=== PATIENT | female | born 1995 | race Caucasian/White ===

== ENCOUNTER 2017-03-21 21:13 | Inpatient (IN) | payer BC, OTHER ==
[~2017-03-21] VITALS: Ht 160 cm; Wt 100.7 kg
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
--- NOTE | ~2017-03-21 | PN ---
Unit #: [id number] #: [id number] Patient: REFUGIO AYALA [id number] [facility] [address] [place] [address] [id number] I MR#: [id number] NAME: REFUGIO AYALA ROOM: P257 Age: 22 Sex: F Admission Date: 03/21/2017 : 1995 Attending Physician: Mickey Troy M.D. Admitting Physician: Mickey Troy M.D. Primary Care Physician: Mary VÁZQUEZ PROGRESS NOTES DATE March 25, 2017 DISCUSSION Ms. Ayala is a 22-year-old white female, who was seen today and chart was reviewed and the case was discussed with the staff. She reports doing fairly well and appears to be showing improvement in her depressive symptoms. Meanwhile, she has been cooperative with the treatment recommendations and she has been taking the medications and tolerating them fairly well with no reported side effects. MENTAL STATUS EXAMINATION Young white female, who was casually dressed with fair personal hygiene and appears to be in no acute distress or discomfort. The patient was awake and alert with intact orientation. Her mood is anxious with a congruent affect. The patient denies any suicidal or homicidal ideations. Her insight and judgment remain slightly impaired. TREATMENT PLAN 1. We will continue her on her current medications and treatment protocol, and will monitor her response to the medications, and make further adjustments as needed. 2. We will continue to followup. Dictated by... Hans Zelaya/shanna TD: 03/25/2017 12:28 JOB #: [id number] Unit #: [id number] #: [id number] Patient: REFUGIO AYALA PROGRESS NOTES Page 1 of 1 X Mickey Troy MD X PROGRESS NOTE
--- NOTE | ~2017-03-21 | PN ---
Unit #: [id number] #: [id number] Patient: REFUGIO AYALA [id number] [facility] [address] [place] [address] [id number] I MR#: [id number] NAME: REFUGIO AYALA ROOM: P257 Age: 22 Sex: F Admission Date: 03/21/2017 : 1995 Attending Physician: Mickey Troy M.D. Admitting Physician: Mickey Troy M.D. Primary Care Physician: Mary VÁZQUEZ PROGRESS NOTES DATE 03/23/2017 DISCUSSION Ms. Ayala is a 22-year-old white female who was seen today and chart was reviewed and case was discussed with the staff. She has been anxious, withdrawn and rather seclusive to herself. Meanwhile, she has been cooperative with treatment recommendations and has been taking the medications and tolerating them fairly well with no reported side effects. MENTAL STATUS EXAMINATION Young white female who was casually dressed with fair personal hygiene, appears to be in no acute distress or discomfort. She was awake and alert on interaction with intact orientation. Her mood was anxious with congruent affect. Her speech was slow and goal-directed. She denies any suicidal or homicidal ideations. Also, denies any auditory or visual hallucinations. Her insight and judgement remains slightly impaired. TREATMENT PLAN 1. We will continue her on her current medications and treatment protocol. We will monitor her response to the medication and make further adjustments as needed. 2. We will continue to follow up. Dictated by... Hans Zelaya/miranda TD: 03/23/2017 23:14 JOB #: [id number] Unit #: [id number] #: [id number] Patient: REFUGIO AYALA PROGRESS NOTES Page 1 of 1 X Mickey Troy MD PROGRESS NOTE
--- NOTE | ~2017-03-21 | PN ---
Unit #: [id number] #: [id number] Patient: REFUGIO AYALA [id number] [facility] [address] [place] [address] [id number] I MR#: [id number] NAME: REFUGIO AYALA ROOM: P257 Age: 22 Sex: F Admission Date: 03/21/2017 : 1995 Attending Physician: Mickey Troy M.D. Admitting Physician: Mickey Troy M.D. Primary Care Physician: Mary VÁZQUEZ PROGRESS NOTES DATE 03/24/2017 DISCUSSION Ms. Ayala is a 22-year-old white female with mood disorder who was seen today and chart was reviewed and case was discussed with the staff. She has been anxious, withdrawn, depressed and rather seclusive to herself. Meanwhile, she has been cooperative with treatment recommendations and has been taking medications and tolerating them fairly well with no reported side effects. MENTAL STATUS EXAMINATION Young white female who was casually dressed with fair personal hygiene and appears to be in no acute distress or discomfort. She was awake and alert on interaction with intact orientation. Her mood was anxious with congruent affect. She denies any suicidal or homicidal ideations and also denies any auditory or visual hallucinations. Her insight and judgement remains slightly impaired. TREATMENT PLAN 1. Will continue on current medications and treatment protocol. Will monitor her response to the medications and make further adjustments as needed. 2. Will continue to follow up. Dictated by... Hans Zelaya/kenny TD: 03/24/2017 19:43 JOB #: [id number] Unit #: [id number] #: [id number] Patient: REFUGIO AYALA PROGRESS NOTES Page 1 of 1 X Mickey Troy MD X PROGRESS NOTE
--- NOTE | ~2017-03-21 | DS ---
Unit #: [id number] #: [id number] [facility]: [facility]ALA [id number] [facility] [address] [place] [address] [id number] I MR#: [id number] NAME: REFUGIO AYALA ROOM: [facility] Age: 22 Sex: F Admission Date: 03/21/2017 : 1995 Discharge Date: 03/26/2017 Attending Physician: Mickey Troy M.D. Primary Care Physician: Mary Goodrich DISCHARGE SUMMARY IDENTIFYING DATA Ms. Ayala is a 22-year-old single white female who is a resident of [place], [place] and was brought to the hospital by her mother. DISCHARGE DIAGNOSES PSYCHIATRIC: Major depressive disorder, recurrent, moderate, without psychotic features. MEDICAL None. STRESSORS Mild psychosocial stressors. HISTORY OF PRESENT ILLNESS Please see initial psychiatric evaluation. PAST PSYCHIATRIC HISTORY Please see initial psychiatric evaluation. PAST MEDICAL HISTORY Please see initial psychiatric evaluation. HOSPITAL COURSE The patient was admitted to the adult psychiatric unit at [facility] kezia Reeder and was oriented to the hospital environment. Routine p.r.n. medications were initiated and she was started back on her home medications and was closely monitored. She was initially seen to be anxious, withdrawn and depressed and rather seclusive to herself. However, she was compliant with treatment recommendations and was taking medications regularly and was tolerating them fairly well and was able to show a decent therapeutic response with improvement in depression and anxiety and as such it was decided that she will be kept on her current home medications and will be discharged home. We will continue treatment on outpatient basis. DISCHARGE MEDICATIONS 1. Cymbalta 30 mg at bedtime for depression. 2. Abilify 5 mg at bedtime for depression. 3. Wellbutrin XL 150 mg in the morning for depression. CONDITION AT DISCHARGE Stable. Unit #: [id number] #: [id number] Patient: REFUGIO AYALA PROGNOSIS Fair. Dictated by... Hans Zelaya/miranda TD: 03/26/2017 23:05 JOB #: [id number] DISCHARGE SUMMARY Page 1 of 1 X Mickey Troy MD X DISCHARGE SUMMARY
--- NOTE | ~2017-03-21 | HP ---
Unit #: [id number] #: [id number] Patient: REFUGIO MORGAN [id number] [place] [address] [id number] I MR#: [id number] NAME: REFUGIO MORGAN ROOM: P132 Age: 22 Sex: F Admission Date: 03/21/2017 : 1995 Attending Physician: Mickey Troy M.D. Admitting Physician: Mickey Troy M.D. Primary Care Physician: Mary Goodrich HISTORY AND PHYSICAL HISTORY OF PRESENT ILLNESS Refugio is a 22 year old admitted to [address] [place] [address] with depression and verbalizing wanting to hurt herself. PAST MEDICAL HISTORY Morbid obesity. PAST SURGICAL HISTORY Nothing reported. ALLERGIES No known drug allergies. SOCIAL HISTORY She does not smoke. Drinks alcohol rarely. Denies illicit drug use. FAMILY HISTORY Medically noncontributory. REVIEW OF SYSTEMS CONSTITUTIONAL: No fever or chills. HEENT: Denies any sore throat, ear pain or runny nose. CARDIOVASCULAR: Denies chest pain, irregular heart rhythm or palpitations. CHEST: Denies shortness of breath or cough. No hemoptysis. GASTROINTESTINAL: Denies nausea, vomiting, diarrhea or chronic constipation. ENDOCRINE: Denies history of increased thirst or urination. No recent significant weight loss or gain. GENITOURINARY: Denies dysuria, frequency, or hematuria. SKIN: Denies any rashes. HEMATOLOGIC: Denies history of increased bleeding or bruising. MUSCULOSKELETAL: Denies any hot, swollen joints. No generalized muscle pain. NEUROLOGIC: Denies problems with vision or speech. No frequent, severe headaches. No numbness, tingling or weakness in any extremities. Denies loss of bladder or bowel control. CURRENT MEDICATIONS 1. Melatonin 5 mg q.h.s. 2. Cymbalta 30 mg q.h.s. 3. Abilify 5 mg q.h.s. 4. Wellbutrin XL 150 mg daily. 5. Milk of Magnesia p.r.n. Unit #: [id number] #: [id number] Patient: REFUGIO MORGAN 6. Maalox p.r.n. 7. Tylenol p.r.n. PHYSICAL EXAMINATION GENERAL: Alert, well-nourished, in no apparent distress. VITAL SIGNS: Blood pressure 156/96, heart rate 80, respirations 16, temperature 98.6. WEIGHT: 222. HEIGHT: 5 feet 3 inches. SKIN: Warm and dry without rash or lesion. HEENT: Normocephalic. TMs not viewed. Oral and nasal passages clear. Conjunctivae clear. PERRLA. EOMs intact. NECK: Supple without lymphadenopathy or thyromegaly. HEART: Regular rate and rhythm without murmur. LUNGS: Clear. ABDOMEN: Soft, nontender. : Not done. EXTREMITIES: No evidence of cyanosis, clubbing or edema. Moves all without focal deficit. NEUROLOGICAL: Grossly within normal limits. Cranial Nerves: II: Visual mandujano are intact. III, IV AND : Extraocular movements are intact. Pupils are equal, round and reactive to light. V: Facial sensation is grossly normal. VII: Facial movements and expression are normal. VIII: Auditory acuity grossly intact. IX, X: Uvula is midline. Phonation is normal. XI: Patient shrugs shoulders and turns head normally. XII: Tongue protrudes in the midline. Sensory and Motor Function: Sensory and motor sensation is grossly normal. Motor: moves all extremities well. Coordination: Gait is normal. Deep Tendon Reflexes: Intact. IMPRESSION Psychiatric admission. RECOMMENDATIONS PSYCHIATRIC: Per psychiatrist. MEDICAL: See no contraindication to participate in facility's activities. MEDICAL PROGNOSIS Good. MEDICAL CONDITION Stable. Dictated by... Margarita Womack P.A.-C. for Hans Horowitz/kenny TD: 03/22/2017 15:59 JOB #: [id number] Unit #: [id number] #: [id number] Patient: REFUGIO MORGAN HISTORY AND PHYSICAL Page 1 of 1 X Margarita Womack HISTORY AND PHYSICAL
[2017-03-22 09:36] LABS: URINE APPEARANCE CLEAR; URINE BILIRUBIN NEG (NEG); URINE BLOOD NEG (NEG); URINE COLOR YELLOW; URINE GLUCOSE NEG (NEG); URINE KETONE NEG (NEG); URINE LEUKOCYTE ESTERASE NEG (NEG); URINE NITRATE NEG (NEG); URINE PROTEIN NEG (NEG); URINE SPECIFIC GRAVITY 1.011 (1.003-1.035); URINE UROBILINOGEN 0.2 MG/DL (NEG)
[2017-03-22 10:30] LABS: AMPHETAMINE NEG (NEG); BARBITURATES NEG (NEG); BENZODIAZEPINES NEG (NEG); COCAINE NEG (NEG); MARIJUANA NEG (NEG); OPIATES NEG (NEG); TRICYCLIC ANTIDEPRESSANTS NEG (NEG); U METHADONE NEG (NEG)
[2017-03-22 12:32] LABS: BASOPHIL# 0.1 X10e3 (0-0.3); BASOPHIL% 0.5 % (0-2.5); EOSINOPHIL# 0.1 X10e3 (0-0.7); HEMATOCRIT 44.6 % (35.0-45.0); LYMPHOCYTE# 2.1 X10e3 (1.0-3.5); MEAN CELL VOLUME 84.6 FL (83-96); MEAN CORPUSCULAR HEMOGLOBIN 28.5 PG (28-34); MEAN CORPUSCULAR HGB CONC 33.7 g/dL (30-36); MEAN PLATELET VOLUME 8.3 FL (6.5-11.5); MONOCYTE# 0.9 X10e3 (0-1.0); MONOCYTE% 8.1 % (3.0-12.0); NEUTROPHIL# 7.8 X10e3 (1.5-7.1); NEUTROPHIL% 71.4 % (40-75); PLATELET COUNT 358 X10e3 (140-420); RED BLOOD COUNT 5.27 X10e (3.90-5.30); RED CELL DISTRIBUTION WIDTH 13.3 % (11.0-15.5); WHITE BLOOD COUNT 10.9 X10e3 (4.0-10.5)
[2017-03-22 12:40] LABS: DIFF IND NO
[2017-03-22 12:54] LABS: ALBUMIN SERUM 4.3 g/dL (3.5-5.0); BILIRUBIN,TOTAL 0.6 mg/dL (0.2-2.0); BUN/CREATININE RATIO 11.25; CALCIUM SERUM 9.8 mg/dL (8.4-10.2); CREATININE SERUM 0.8 mg/dL (0.6-1.4); GLOM FILT RATE Estimated 104.7 mL/min (>60); POTASSIUM 4.1 mmol/L (3.5-5.1)
== END 2017-03-26 11:00 | disposition home or self-care (01) | DRG 885 ==
LOC: P1S 23:52 → EDBD 23:52 → P2L 23:52 → P1S 03-23 09:45 → P2L 03-23 16:41
PROVIDERS: Psychiatry & Neurology Psychiatry
DX: F33.1 Major depressive disorder, recurrent, moderate (principal); E66.01 Morbid (severe) obesity due to excess calories; F41.9 Anxiety disorder, unspecified
CPT/HCPCS: 80053; 80307; 81003; 84703; 85025